=== PATIENT | female | born 1995 | race Caucasian/White ===

== ENCOUNTER 2023-11-27 10:48 | Day surgery (SDC) | payer OTHER, SELFPAY ==
--- NOTE | 2023-11-25 16:43 | PCM.HP.BLA ---
History and Physical Date of Admission: 11/27/23 HPI: The patient is a 28 year old female presenting for pre-operative visit. She is scheduled for Hysteroscopy D&C and polyp resection, for abnormal uterine bleeding and endometrial polyp on 11/27/23. Procedure discussed along with risks, benefits and complications. Other alternatives discussed for management. Consent form signed? Yes. ? ? PAST MEDICAL HISTORY PAST MEDICAL HISTORY Diagnosis Date ? Anxiety 09/19/2010 ? Depression 09/20/2010 ? ? PAST SURGICAL HISTORY PAST SURGICAL HISTORY Procedure Laterality Date ? TONSILLECTOMY PRIMARY/SECONDARY <AGE 12 ? ? ? Tonsillectomy ? ? ? CURRENT MEDICATIONS Current Outpatient Medications Medication Sig Dispense Refill ? losartan-hydroCHLOROthiazide (HYZAAR) 50-12.5 mg per tablet Take 1 tablet by mouth every afternoon. ? ? ? ondansetron orally disintegrating (ZOFRAN ODT) 4 mg disintegrating tablet dissolve 1 tablet ON TONGUE every 4 hours if needed for nausea ? ? ? clomiPHENe (SEROPHENE) 50 mg tablet Take 1 tablet by mouth once daily. 5 tablet 1 ? medroxyPROGESTERone (PROVERA) 10 mg tablet Take 1 tablet by mouth once daily. (Patient not taking: Reported on 11/25/2023) 10 tablet 0 ? No current facility-administered medications for this visit. ? ? ALLERGIES: Amoxicillin and Zithromax [Azithromycin] ? PERSONAL HISTORY: SOCIAL HISTORY Social History ? Tobacco Use ? Smoking status: Never ? Smokeless tobacco: Never Vaping Use ? Vaping Use: current everyday user ? Substances: Nicotine Substance Use Topics ? Alcohol use: Yes ? Drug use: No ? FAMILY HISTORY: FAMILY HISTORY FAMILY HISTORY Adopted: Yes Problem Relation Age of Onset ? None Mother ? ? Hypertension Mother ? ? other (heart murmur [Other]) Father ? ? other (stomach ulcers [Other]) Father ? ? other (cholesterol [Other]) Maternal Grandmother ? ? ? REVIEW OF SYMPTOMS: GENERAL: denies fevers or chills ENDOCRINOLOGY: has not been on steroids Cardiology : denies palpitations or chest pain Respiratory: denies SOB or cough Hematology: denies history of prolonged bleeding or easy bruising or VTE Allergy: Denies history of personal or family history of allergy to anesthesia ? PHYSICAL EXAMINATION: ? VITALS: Blood pressure 162/102, pulse 96, resp. rate 16, height 5' 2 (1.575 m), weight 232 lb (105.2 kg), last menstrual period 10/18/2023, SpO2 99%. ? GENERAL: The patient is well nourished, well hydrated in no acute distress. , The patient is oriented to time, place, and person. NECK: Supple. No lynphadenopathy, normal thyroid, no thyromegaly. LUNGS: Clear to auscultation bilaterally. no wheezes, rhonchi or rales ? ? IMPRESSION: Endometrial polyp and abnormal uterine bleeding ? PLAN: The risks/benefits/alternatives and personal involved for the planned hysteroscopy D&C with polyp resection were reviewed with the patient. Her questions were answered to her satisfaction and she desires to proceed. Consent was signed. I reviewed with her postop instructions and expectations. ? ? I have reviewed and updated past medical and surgical history, medications and allergies Assessment & Plan Assessment/Plan (1) Abnormal uterine bleeding (AUB): (2) Endometrial polyp:
--- NOTE | 2023-11-27 | EMB_PTH ---
PATIENT: SUSAN DIAS LOC: [facility] – [place] U#:[id number] AGE/SX: 28/F ROOM: RE11/27/[address]: Dr. Peyton Grande MD : [id number] BED: DIS: 11/27/2023 SPEC #: [id number] RECD: 11/27/23 16:39 STATUS: KRISTIN LEIVA #: [id number] LUIS: 11/27/23 00:[address]: Peyton Grande DEPT: SURGICAL PATHOLOGY RECD BY: Brain Aguiar Tissues: Endometrium, NOS Procedures: Surgery Specimen Level IV HEADER OPERATION: Hysteroscopy, D&C, Polyp resection, Symphion PRE-OP DIAGNOSIS: Endometrial polyp, Abnormal uterine bleeding TISSUE SUBMITTED: Endometrial Curettings and polyp MICROSCOPIC DIAGNOSIS Endometrial Curettings and polyp; Polypoid fragments mildly disordered proliferative endometrium with focal glandular breakdown. Rare fragments benign endocervical mucosa. Fragments of benign myometrial tissue . AM/mr 12/01/2023 MICROSCOPIC DESCRIPTION Slides are reviewed. GROSS DESCRIPTION Received in fixative is one container labeled with the patient's name and designated Endometrial Curettings and polyp. The specimen consists of multiple irregular fragments of light palma soft tissue that in aggregate measures 5.4 x 4.0 x 0.1 cm. The specimen is totally submitted in two cassettes. SADA/ 11/30/23 TC: 5 CPT: 05429
[2023-11-27] MEDS: Lactated Ringers 1,000 ML 15 ML IV (11:18)
[2023-11-27] MEDS: Ketorolac 30 MG/ML Syringe IV (11:19)
[2023-11-27] MEDS: Acetaminophen 500 MG Tablet 1000 MG PO (11:19)
[2023-11-27 11:22] VITALS: BP 137/87; PULSE 94; RESP 18; TEMP 36.3; O2SAT 100; BMI 41.6
[2023-11-27 11:24] LABS: Internal QC Validated? YES +Cl - CLEAR BKGD
[2023-11-27 11:25] LABS: Pregnancy, Urine Negative Negative; Record Kit Lot#,Urine Preg HCG0000718086
[2023-11-27 11:32] LABS: Hemoglobin 12.8 g/dL (12.0-15.0); Mean Corp Hgb Conc 31.2 g/dL (32-36); Mean Corpuscular Hgb 26.1 pg (27.0-32.0); Mean Corpuscular Volume 83.5 fL (81-99); Mean Platelet Vol. 10.4 fl (6.2-12.0); Platelet Count 309 K/mm3 (150-450); RBC Distribution Width CV 16.4 % (11.6-14.6); RBC Distribution Width SD 49.7 fl (35.1-43.9); Red Blood Count 4.91 M/mm3 (4.2-5.4); White Blood Count 11.1 K/mm3 (4.4-11.0)
--- NOTE | 2023-11-27 13:25 | OP.PCM_ITS ---
Problems Associated Problem List Diagnoses (1) Endometrial polyp: (2) Abnormal uterine bleeding (AUB): Report of Operation Date of Procedure: 11/27/23 Pre-Operative Diagnosis: aub, endometrial polyp Post-Operative Diagnosis: same Surgeon: Peyton Grande picking machine operator: Karen Castro MS3 Type of Anesthesia: MAC/Supplemental/Local Anesthesiologist: Irene Mcbride Special Medications: none Drains: none Description of Procedure: The patient was taken to the OR where she was prepped and draped in dorsal lithotomy position. The weighted speculum was placed in the vagina and the anterior lip of the cervix was grasped with a single-tooth tenaculum. A paracervical block was administered with [1% lidocaine with 1-100,000 epinephrine solution]. The cervix was dilated serially with Hegar dilators. The [5mm] hysteroscope was placed into the uterine cavity and the above findings were noted. Bilateral tubal ostia [were] identified. The hysteroscope was removed. A gentle sharp curettage was done of the uterine cavity. The instruments were removed from the vagina. The specimen was handed off and sent to pathology. All sponge and needle counts were correct. Vaginal sweep was performed by me. The patient was awakened and taken to the recovery room in stable condition. Hysteroscopic ins: []cc normal saline Hysteroscopic outs:[]cc Findings: Endometrial cavity: [normal, no fibroids or polyps noted] Cervix: [normal] Vagina: [normal] Grafts/Implants Used: none Complications none Admit VTE Documentation VTE Present on Admission: No VTE Mechan Device Prophylaxis: SCD's VTE Pharm Prophylaxis ordered?: No
--- NOTE | 2023-11-27 13:25 | PCM.OPRPT ---
Problems Associated Problem List Diagnoses (1) Endometrial polyp: (2) Abnormal uterine bleeding (AUB): Report of Operation Date of Procedure: 11/27/23 Pre-Operative Diagnosis: aub, endometrial polyp Post-Operative Diagnosis: same plus endocervical polyp Surgery/Procedure Performed:: Hysteroscopy D&C with polypectomy. Description of Surgical Findings:: Normal cervix and vagina. Lush endometrium with endometrial polyp at the fundus and also endocervical polyp noted. Both tubal ostia identified Surgeon: Peyton Grande warranty manager: Karen Castro MS3 Type of Anesthesia: MAC/Supplemental/Local Anesthesiologist: Irene Mcbride Special Medications: none Specimen's removed: endometrial curettings and polyp Drains: none Estimated Blood Loss (mL): 10 Fluids Replaced: 800 Description of Procedure: The patient was taken to the OR where she was prepped and draped in dorsal lithotomy position. The weighted speculum was placed in the vagina and the anterior lip of the cervix was grasped with a single-tooth tenaculum. A paracervical block was administered with 1% lidocaine with 1-100,000 epinephrine solution. The cervix was dilated serially with Hegar dilators. The Symphion hysteroscope was placed into the uterine cavity and the above findings were noted. Bilateral tubal ostia were identified. The Symphion resection device was inserted and usted to resect the polyps and do a visual D&C of the endometrial cavity. The instruments were removed from the vagina. The specimen was handed off and sent to pathology. All sponge and needle counts were correct. Vaginal sweep was performed by me. The patient was awakened and taken to the recovery room in stable condition. Hysteroscopic fluid deficit calculated to be 750 cc of normal saline Grafts/Implants Used: none Procedure Start Time: 13:32 Procedure Stop Time: 13:45 Complications none Admit VTE Documentation VTE Present on Admission: No VTE Mechan Device Prophylaxis: [facility] [place] Prophylaxis ordered?: No
--- NOTE | 2023-11-27 13:26 | PCM.DC ---
Discharge Instructions Diet Discharge Diet: No restrictions Activity Discharge Activity: May Shower May resume sexual activity in: 1 week Lifting Restrictions: none Dressing / Incision Call your doctor if your incision/area has: Sudden Increased Bleeding and Foul Smelling Discharge Call your doctor if you observe: Fever of 101 or Higher and Using more than 1 pad per hour (for 2 hrs in a row) Additional Dressing/Incision Instructions:: Use acetaminophen or ibuprofen or heat as needed for pain. Follow Up Care Please Follow Up With: Peyton Grande MD When: You do not need to schedule a postop appointment. We will contact you with the pathology. Call [phone] or send a [employer] message with any questions or concerns Test Results: Test results from this visit will be discussed in further detail at your follow-up appointment, if applicable. Discharge Plan Admission Primary Reason for Your Visit: Hysteroscopy D&C with polyp resection Attending Provider: Peyton Grande Primary Care Provider: ALOK SAGASTUME Discharge Orders/Prescriptions Prescriptions: No Action losartan-hydrochlorothiazide 50-12.5 mg tablet 1 tab PO DAILY Nutrisource Fiber Packet 1 tbsp PO TID Rx Instructions: mix into at least 4 oz water or juice before administering Gummies 400 mcg-35 mg- 25 mg-5 mg tablet,chewable 2 tab PO DAILY Disposition Disposition (needs filled in before D/C Order can be placed): Home, Self Care
[2023-11-27] MEDS: Lidocaine 1%/Epi 1:200 (30ml) 30 ML AMPUL (13:32)
[2023-11-27 13:55] VITALS: BP 143/102; BP 144/85; PULSE 96; RESP 16; TEMP 36.7; O2SAT 100
[2023-11-27 14:00] VITALS: BP 124/79; BP 143/102; PULSE 96; RESP 16; O2SAT 99
[2023-11-27 14:05] VITALS: BP 136/104; BP 143/102; PULSE 96; RESP 16; O2SAT 99
[2023-11-27 14:10] VITALS: BP 118/92; BP 143/102; PULSE 96; RESP 16; TEMP 36.4; O2SAT 99
[2023-11-27 14:33] VITALS: BP 143/102
== END 2023-11-27 14:35 | disposition home or self-care (01) ==
LOC: SDC 10:55 → AC 10:55
PROVIDERS: Anesthesiology; Referring Provider Obstetrics & Gynecology; Visit Provider Obstetrics & Gynecology
PROC: 0UB98ZZ Excision of Uterus, Via Natural or Artificial Opening Endoscopic (ICD-10-PCS; CPT 58558; principal; 2023-11-27 12:00)
DX: N93.9 Abnormal uterine and vaginal bleeding, unspecified (principal); N84.0 Polyp of corpus uteri; F17.290 Nicotine dependence, other tobacco product, uncomplicated; I10 Essential (primary) hypertension; Z79.899 Other long term (current) drug therapy
CPT/HCPCS: 58558; 00952; 81025; 85027; 88305; J7120; J2405